=== PATIENT | female | born 1965 | race Caucasian/White ===

== ENCOUNTER → 2024-04-21 | Outpatient (CLI) | payer MEDICARE ==
--- NOTE | 2024-04-22 08:11 | MM ---
Reason for Exam: Screening (asymptomatic). Last mammogram was performed 7 year(s) and 7 month(s) ago. Patient History: Menarche at age 17. First Full-Term at age 29. Postmenopausal. Currently using Estrogen, beginning at age 53 for 4 years. 1988, Bilateral Reduction. Risk Values: [place] 5 year model risk: 1.3%. NCI Lifetime model risk: 8.0%. Prior Study Comparison: 09/17/2016 Bilateral Screening Mammogram, Unknown. Tissue Density: The breasts are heterogeneously dense, which may obscure small masses. Findings: Analyzed By CAD. Right breast: There is no suspicious group of microcalcifications or new suspicious mass. Benign-appearing calcifications right breast. Left breast: There is no suspicious group of microcalcifications or new suspicious mass. Benign-appearing calcifications left breast. Overall Assessment: Benign, BI-RAD 2 Management: Screening Mammogram of both breasts in [address] [facility] will attempt to contact patient to return for supplemental views and ultrasound if indicated. Patient should continue monthly self-breast exams. A clinical breast exam by your physician is recommended on an annual basis. This exam should not preclude additional follow-up of suspicious palpable abnormalities. Note on [place] scores and lifetime risk: 1. A [place] score greater than 3% is considered moderate risk. If this is the case, consider specialist referral to assess eligibility for a risk reducing agent. 2. If overall lifetime risk for the development of breast cancer is 20% or higher, the patient may qualify for future screening with alternating mammogram and breast MRI. [facility], , 04/22/2024 8:08 AM. Electronically signed and approved by: Eduardo Shin DO
== END | disposition home or self-care (01) ==
LOC: RADMAMWWP 13:13
PROVIDERS: ATTEND Internal Medicine Geriatric Medicine
CPT/HCPCS: 77063; 77067